=== PATIENT | female | born 1990 | race Caucasian/White ===

== ENCOUNTER → 2021-12-05 09:09 | Outpatient (CLI) | payer SELFPAY ==
[2021-12-05 20:34] LABS: Thyroid Stimulating Hormone 4.29 uIU/mL (0.47-4.68)
== END ==
PROVIDERS: Naturopath
DX: E03.9 Hypothyroidism, unspecified (principal)
CPT/HCPCS: 84443

== ENCOUNTER → 2022-01-23 11:35 | Outpatient (CLI) | payer SELFPAY ==
[2022-01-24 05:12] LABS: Thyroid Stimulating Hormone 0.938 uIU/mL (0.47-4.68)
[2022-01-24 07:38] LABS: C-Reactive Protein Quant 1.6 mg/dL (<1.0)
[2022-01-24 07:53] LABS: Prolactin 18.9 ng/mL (3.0-18.6)
[2022-01-24 08:26] LABS: Follicle Stimulating Hormone 1.78 mIU/mL; Luteinizing Hormone 2.19 mIU/mL
== END ==
DX: E03.8 Other specified hypothyroidism (principal); E06.3 Autoimmune thyroiditis; R53.2 Functional quadriplegia; E03.9 Hypothyroidism, unspecified
CPT/HCPCS: 83001; 83002; 83498; 84146; 84443; 85651; 86038; 86140

== ENCOUNTER → 2022-10-03 18:36 | Outpatient (ROUT) | payer SELFPAY ==
[2022-10-03 18:52] LABS: Add Manual Diff / Slide Review NO; Basophils Absolute Auto 0 /uL (0-100); Basophils Percent Auto 0.4 % (0-2); Eosinophils Absolute Auto 100 /uL (0-450); Eosinophils Percent Auto 2.9 % (2-4); Hemoglobin 13.1 g/dL (12.0-16.0); Lymphocytes Absolute Auto 1600 /uL (1100-4500); Lymphocytes Percent Auto 31.8 % (25-40); Mean Corpuscular HGB Conc 33.7 % (30-36); Mean Corpuscular Volume 88.8 fL (80-100); Monocytes Absolute Auto 400 /uL (0-900); Monocytes Percent Auto 7.6 % (3-14); Neutrophils Absolute Auto 2900 /uL (1500-7000); Neutrophils Percent Auto 57.3 % (50-75); Platelet Count 326 X10^3/uL (150-400); Red Blood Cell Count 4.39 X10^6/uL (4.0-5.2); Red Cell Distribution Width 13.1 % (11.6-14.8); White Blood Cell Count 5.1 X10^3/uL (4.5-11.0)
[2022-10-03 18:54] LABS: Alanine Aminotransferase 18 IU/L (<35); Albumin 4.3 g/dL (3.5-5.0); Albumin Globulin Ratio 1.4 (1.0-2.8); Alkaline Phosphatase 63 U/L (38-126); Aspartate Aminotransferase 24 IU/L (14-36); BUN Creatinine Ratio 25.4 (6-22); Bilirubin Total 0.7 mg/dL (0.2-1.3); Blood Urea Nitrogen 15 mg/dL (7-17); Calcium 9.3 mg/dL (8.4-10.2); Carbon Dioxide 24 mmol/L (22-32); Chloride 102 mmol/L (98-107); Cholesterol 199 mg/dL (140-199); Estimated Glomerular Filt Rate > 60 mL/min (>60); Globulin 3.1 g/dL (1.7-4.1); Glucose 95 mg/dL (70-100); HDL Cholesterol 45 mg/dL (40-60); HEMOLYSIS 16 (0-50); LDL Cholesterol Calculated 137 mg/dL (<100); Potassium 4.4 mmol/L (3.4-5.1); Sodium 137 mmol/L (137-145); Total Protein 7.4 g/dL (6.3-8.2); Triglycerides 84 mg/dL (35-150)
[2022-10-06 13:46] LABS: Var-Zoster Immunity Screen 650 index (Immune >165)
[2022-10-06 17:41] LABS: Rubella Antibody IgG 31.2 IU/mL (>15)
[2022-10-06 17:51] LABS: Hep C Virus Ab w/Reflex Quant NEGATIVE s/c (NEGATIVE)
[2022-10-07 08:19] LABS: Hepatitis Be Antibody Negative (Negative)
[2022-10-07 12:27] LABS: Mumps Virus IgG Antibody 82.4 AU/mL (Immune >10.9)
== END ==
PROVIDERS: Visit Provider Emergency Medicine
DX: Z13.0 Encounter for screening for diseases of the blood and blood-forming organs and certain disorders involving the immune mechanism (principal); Z13.220 Encounter for screening for lipoid disorders; Z01.89 Encounter for other specified special examinations; Z11.59 Encounter for screening for other viral diseases
CPT/HCPCS: 80053; 80061; 85025; 86707; 86735; 86762; 86765; 86787; 86803

== ENCOUNTER → 2023-07-23 10:07 | Outpatient (CLI) | payer OTHER, SELFPAY ==
[2023-07-23 19:27] LABS: Hepatitis B Surface Antigen NEGATIVE s/c (NEGATIVE)
[2023-07-23 19:53] LABS: HIV 1 & 2 Ab/Ag 4th Gen Combo NEGATIVE (NEGATIVE); Hep C Virus Ab w/Reflex Quant NEGATIVE s/c (NEGATIVE)
[2023-07-23 21:48] LABS: Urine N gonorrhoeae NOT DETECTED
[2023-07-23 22:01] LABS: Urine Chlamydia NOT DETECTED
[2023-08-14 08:35] LABS: Treponema pallidum Antibodies Non Reactive
== END ==
PROVIDERS: PCP Family Medicine; Visit Provider Family Medicine
DX: E03.9 Hypothyroidism, unspecified (principal); Z20.2 Contact with and (suspected) exposure to infections with a predominantly sexual mode of transmission
CPT/HCPCS: 84443; 86696; 86780; 86803; 87340; 87389; 87491; 87591

== ENCOUNTER → 2023-10-26 09:29 | Outpatient (CLI) | payer OTHER, SELFPAY ==
[2023-10-26 20:31] LABS: Thyroid Stimulating Hormone 0.612 uIU/mL (0.47-4.68)
== END ==
PROVIDERS: PCP Family Medicine; Visit Provider Family Medicine
DX: E03.9 Hypothyroidism, unspecified (principal)
CPT/HCPCS: 84443

== ENCOUNTER → 2025-02-23 14:29 | Outpatient (CLI) | payer BC, SELFPAY ==
[2025-02-23 19:06] LABS: Hematocrit 38.4 % (36-46); Hemoglobin 13.2 g/dL (12.0-16.0); Mean Corpuscular HGB Conc 34.3 % (30-36); Mean Corpuscular Hemoglobin 29.9 PG (26-34); Mean Corpuscular Volume 87.3 fL (80-100); Platelet Count 344 X10^3/uL (150-400)
[2025-02-23 19:08] LABS: Alanine Aminotransferase 15 IU/L (<35); Albumin 4.3 g/dL (3.5-5.0); Albumin Globulin Ratio 1.5 (1.0-2.8); Alkaline Phosphatase 58 U/L (38-126); Blood Urea Nitrogen 17 mg/dL (7-17); Calcium 10.1 mg/dL (8.4-10.2); Carbon Dioxide 26 mmol/L (22-32); Chloride 103 mmol/L (98-107); Cholesterol 185 mg/dL (140-199); Estimated Glomerular Filt Rate > 60 mL/min (>60); Globulin 2.8 g/dL (1.7-4.1); Glucose 100 mg/dL (70-99); HDL Cholesterol 51 mg/dL (40-60); HEMOLYSIS < 15 (0-50); Potassium 4.2 mmol/L (3.4-5.1); Sodium 137 mmol/L (137-145); Total Protein 7.1 g/dL (6.3-8.2); Triglycerides 173 mg/dL (35-150)
[2025-02-23 19:25] LABS: Vitamin D 25 Hydroxy (D3) 54.8 ng/mL (30.0-100.0)
[2025-02-23 19:32] LABS: Hemoglobin A1C% w Est Avg Glu 5.4 % (4.0-6.0)
[2025-02-23 19:43] LABS: Ferritin 31 ng/mL (6-137); Free T3, Triiodothyronine Free 4.25 pg/mL (2.77-5.27)
[2025-02-23 19:52] LABS: HIV 1 & 2 Ab/Ag 4th Gen Combo NEGATIVE (NEGATIVE)
[2025-02-23 19:57] LABS: TSH w/ Reflex to FT4 1.98 uIU/mL (0.47-4.68)
[2025-02-23 22:10] LABS: Urine N gonorrhoeae NOT DETECTED
[2025-02-23 22:17] LABS: Urine Chlamydia NOT DETECTED
[2025-02-25 02:08] LABS: HSV 1 IGG Reactive (Non Reactive); HSV 2 IGG Non Reactive (Non Reactive); Hepatitis A Antibody IgM Negative (Negative); Hepatitis B Core Antibody IgM Negative (Negative); Hepatitis C Antibody Non Reactive (Non Reactive)
== END ==
PROVIDERS: PCP Family Medicine; Visit Provider Family Medicine
DX: E06.3 Autoimmune thyroiditis (principal); L40.9 Psoriasis, unspecified; M41.9 Scoliosis, unspecified; Z20.2 Contact with and (suspected) exposure to infections with a predominantly sexual mode of transmission; Z13.1 Encounter for screening for diabetes mellitus; E78.2 Mixed hyperlipidemia; E55.9 Vitamin D deficiency, unspecified
CPT/HCPCS: 80053; 80061; 80074; 82306; 82728; 83036; 84443; 84481; 85027; 86376; 86592; 86695; 86696; 87389; 87491; 87591